=== PATIENT | male | born 1945 | race Caucasian/White ===

== ENCOUNTER 2019-12-11 14:49 | Outpatient (CLI) | payer MEDICARE ==
[~2019-12-11 14:49] MED LIST: Gadobenate Dimeglumine 529 MG/1 ML (20ML VIAL) ONE
[2019-12-11 15:26] LABS: Estimated GFR-MDRD - POC Greater than 90
--- NOTE | 2019-12-11 16:19 | MRI ---
MR of the right foot with and without IV contrast INDICATION: History of nonhealing ulcer and type 2 diabetes Contrast: 20 cc of MultiHance COMPARISON: None FINDINGS: There is a large plantar base ulceration underlying the fifth digit MTP joint. There is a s ubcutaneous abscess overlying the ulceration site measuring 4.8 x 3.8 cm. There is prominent fragmentation and osteolysis involving the fifth digit metatarsal head neck region. There is dorsal d islocation of the fifth digit MTP joint with abnormal signal and enhancement involving the small digit proximal phalanx consistent with changes of osteomyelitis. Osteomyelitis involving the fifth di git metatarsal head neck region with abnormal signal and enhancement extending up to the proximal shaft of the fifth metatarsal. There is extensive cellulitis of the forefoot. No additional marrow si gnal abnormality is evident. Lisfranc ligament is intact. There is diffuse muscular atrophy of the intrinsic foot musculature. 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 There is dorsal dislocation of the fifth digit MTP joint. There is a large subcutaneous abscess overlying the plantar ulceration, subjacent to the fifth digit MTP joint. The abscess measures 4.8 x 3.8 cm in size. There is extensive cellulitis of the forefoot.
== END 2019-12-11 14:50 | disposition home or self-care (01) ==
LOC: TBSIIMAG 14:49
PROVIDERS: ATTEND Nurse Practitioner Family
DX: E11.621 Type 2 diabetes mellitus with foot ulcer (principal); L97.416 Non-pressure chronic ulcer of right heel and midfoot with bone involvement without evidence of necrosis; M86.9 Osteomyelitis, unspecified; L02.611 Cutaneous abscess of right foot; M89.571 Osteolysis, right ankle and foot; L03.115 Cellulitis of right lower limb; S93.334A Other dislocation of right foot, initial encounter
CPT/HCPCS: 82565; A9577